=== PATIENT | female | born 1960 | race Caucasian/White ===

== ENCOUNTER 2017-06-01 23:01 | Emergency (ER) | payer BC ==
[~2017-06-01] VITALS: Ht 175.3 cm; Wt 69.9 kg
[2017-06-01] MEDS ORDERED: SYNTHROID 88 MCG TABLET (23:42)
[2017-06-02] MEDS ORDERED: KETOROLAC TROMETHAMINE 30 MG INJ IM ONE
[2017-06-02] MEDS ORDERED: KETOROLAC TROMETHAMINE 30 MG INJ ONE (00:46)
--- NOTE | 2017-06-02 01:35 | NUR ---
Patient discharged to home in stable conditon. Written and verbal after care instructions given. Patient verbalizes understanding of instructions.
[2017-06-02 01:36] VITALS: BP 128/88
== END 2017-06-02 01:41 | disposition home or self-care (01) ==
LOC: ER 23:08
DX: S00.83XA Contusion of other part of head, initial encounter (principal); Z88.1 Allergy status to other antibiotic agents; W50.0XXA Accidental hit or strike by another person, initial encounter; Y93.89 Activity, other specified; Y92.89 Other specified places as the place of occurrence of the external cause; Y99.8 Other external cause status
CPT/HCPCS: 70110; A4663; J1885

== ENCOUNTER 2021-08-07 10:18 | Emergency (ER) | payer BC ==
[~2021-08-07] VITALS: Ht 175.3 cm; Wt 73.9 kg
[~2021-08-07 10:18] MED LIST: SYNTHROID 88 MCG TABLET
--- NOTE | 2021-08-07 10:59 | NUR ---
DR LOVELACE AT BEDSIDE FOR EVALUATION.
[2021-08-07] MEDS ORDERED: ACETAMINOPHEN 325 MG TABLET ONE (11:00)
[2021-08-07] MEDS ORDERED: ACETAMINOPHEN 325 MG TABLET PO ONE (11:00)
--- NOTE | 2021-08-07 11:02 | NUR ---
MEDICATED FOR PAIN PER MD ORDER.
[2021-08-07 12:13] VITALS: BP 132/71
--- NOTE | 2021-08-07 12:15 | NUR ---
pt provided with orthopedic shoes and extra taped for stabilizing affected toes. d/c instruction given as well as xray copy.
== END 2021-08-07 12:17 | disposition home or self-care (01) ==
LOC: ER 11:11
DX: S93.602A Unspecified sprain of left foot, initial encounter (principal); W50.0XXA Accidental hit or strike by another person, initial encounter; Y92.89 Other specified places as the place of occurrence of the external cause; Z88.1 Allergy status to other antibiotic agents
CPT/HCPCS: 73630; A4663